=== PATIENT | female | born 1950 ===

== ENCOUNTER 2020-06-10 06:47 | Day surgery (SDC) | payer OTHER ==
[~2020-06-10 06:47] MED LIST: ANTIVERT PO; CELEBREX200MG PO; CLONAZEPAM0.5 MG PO; CRESTOR40 MG PO; GABAPENT PO; ULTRAM50 MG PO; VITAMIN D PO
== END 2020-06-10 15:40 | disposition home or self-care (01) ==
LOC: CIR.AMB 06:47
PROVIDERS: ATTEND Orthopaedic Surgery
DX: M75.121 Complete rotator cuff tear or rupture of right shoulder, not specified as traumatic (principal); Z20.822 Contact with and (suspected) exposure to COVID-19